=== PATIENT | male | born 1940 | race Hispanic/Latino ===

== ENCOUNTER 2017-12-14 17:01 | Inpatient (IN) | payer OTHER ==
[2017-12-14] MEDS ORDERED: SODIUM CHLORIDE 0.9% 10ML INJ IV PRN (17:49)
[2017-12-14 17:56] VITALS: BMI 28.6
[2017-12-14] MEDS ORDERED: MAGNESIUM CITRATE 300 ML BOT PO SCH (19:00)
[2017-12-14] MEDS ORDERED: GOLYTELY 4000 ML PO SCH (19:00)
[2017-12-14] MEDS ORDERED: INFLUENZA VACCINE (for 3y+) 0.5 ML DOSE IMVAC ONE (20:00)
[2017-12-14] MEDS: METOCLOPRAMIDE 10 MG/2mL INJ IV SCH (20:23)
[2017-12-14] MEDS: PANTOPRAZOLE 40 MG INJ IVP SCH (20:24)
[2017-12-14] MEDS: ALLOPURINOL 100 MG TAB PO SCH ×2 (20:24→20:45)
[2017-12-14] MEDS ORDERED: NA CHLORIDE 0.9% 250 ML ONE (21:34)
[2017-12-14 23:44] LABS: Urine Appearance CLEAR; Urine Bilirubin NEGATIVE (NEG); Urine Blood NEGATIVE (NEG); Urine Color YELLOW; Urine Glucose NEGATIVE (NEG); Urine Protein TRACE (NEG); Urine Specific Gravity 1.015 (1.005-1.030); Urine Urobilinogen 0.2 mg/dL (0.2-1.0)
[2017-12-14 23:45] LABS: Urine Microscopic Reflex NO UMIC
[2017-12-15] MEDS: METOCLOPRAMIDE 10 MG/2mL INJ IV SCH ×2 (00:33→06:46)
[2017-12-15 07:40] LABS: Hematocrit 23.4 % (39.6-49.0)
[2017-12-15] MEDS ORDERED: DILTIAZEM HCL 420 MG PO SCH (08:00)
[2017-12-15] MEDS ORDERED: D50W 25 GM/50 ML SYRINGE IV PRN (08:29)
[2017-12-15] MEDS ORDERED: GLUCAGON 1 MG/VIAL IM PRN (08:29)
[2017-12-15] MEDS: DILTIAZEM HCL 180 MG SR CAP PO SCH (09:00)
[2017-12-15] MEDS: DILTIAZEM HCL 120 MG SR CAP PO SCH (09:00)
--- NOTE | 2017-12-15 11:10 | RAD REPORT ---
EXAM DESCRIPTION: US - [facility] - 12/15/2017 10:47 am CLINICAL HISTORY: hx of dvt to right leg Leg swelling and edema. COMPARISON: [facility] dated 11/21/2017 FINDINGS: Right lower extremity venous system was interrogated with Doppler technique. Normal flow, compressibility and augmentation was noted. There is no DVT present.Previously noted greater saphenou s vein thrombosis has significantly recannulized. IMPRESSION: No evidence of right lower extremity deep venous thrombosis. Significant recanalization of the right greater saphenous vein
[2017-12-15] MEDS: PANTOPRAZOLE 40 MG INJ IVP SCH ×2 (11:32→20:53)
[2017-12-15] MEDS: HYDRALAZINE HCL 20 MG/ML VIAL IV PRN ×2 (11:32→23:58)
[2017-12-15] MEDS: INSULIN -REGULAR HUMAN 50 UNIT/0.5 ML ML SQ SCH ×2 (12:00→17:46)
[2017-12-15] MEDS ORDERED: NA CHLORIDE 0.9% 1,000 ML ONE (14:36)
[2017-12-15] MEDS ORDERED: PROPOFOL 200 MG/20 ML VIAL IV ONE ×2 (15:18→16:00)
[2017-12-15] MEDS ORDERED: EPINEPHRINE/PF 1 MG/ML AMP ONE (15:27)
--- NOTE | 2017-12-15 17:21 | ENDO RPT ---
[address], [address] COLONOSCOPY PROCEDURE REPORT EXAM DATE: 12/15/2017 PATIENT NAME: Zackery Belle MR #: [id number] BIRTHDATE: 1940 ATTENDING: Greg Irvin Dr STATUS: inpatient - 7 CAR TOP BOLTER: Ness Mcpherson RN and Lily Fair INDICATIONS: The patient is a 77 yr old Male here for a colonoscopy due to anemia and melenic bleeding PROCEDURE PERFORMED: Colonoscopy with biopsy MEDICATIONS: Per Anesthesia. ESTIMATED BLOOD LOSS: None CONSENT: The patient understands the risks and benefits of the procedure and understands that these risks include, but are not limited to: sedation, allergic reaction, infection, perforation and/or bleeding. Alternative means of evaluation and treatment include, among others: physical exam, x-rays, and/or surgical intervention. The patient elects to proceed with this endoscopic procedure. DESCRIPTION OF PROCEDURE: During intra-op preparation period all mechanical medical equipment was checked for proper function. Hand hygiene and appropriate measures for infection prevention was taken. Procedure, possible complications, alternatives including, but not limited to possibility of bleeding, perforation, tear, infection, sepsis, need for surgery, need for blood transfusion, were explained to the patient. After the risks, benefits and alternatives of the procedure were thoroughly explained, Informed consent was verified, confirmed and timeout was successfully executed by the treatment team. The patient was placed in the left lateral position. A digital rectal exam was performed and revealed no abnormalities of the rectum. After appropriate level of anesthesia, the scope was passed. The EG-2990i ([id number]) and EC-[id number] ([id number]) endoscope was introduced through the anus and advanced to the cecum, which was identified by both the appendix and ileocecal valve. The quality of the prep was fair. The instrument was then slowly withdrawn as the colon was fully examined. Scope withdrawal time was 7 minutes. COLON FINDINGS: Two sessile polyps measuring 3-4 mm in size were found in the sigmoid colon. A biopsy was performed using cold forceps. Mild diverticulosis was noted throughout the entire examined colon. No bleeding was noted from the diverticulosis. Moderate sized internal hemorrhoids were found. Retroflexed views revealed medium hemorrhoids. The scope was then completely withdrawn from the patient and the procedure terminated. ADVERSE EVENTS: There were no complications. IMPRESSIONS: 1. Two sessile polyps measuring 3-4 mm in size were found in the sigmoid colon; biopsy was performed using cold forceps (no polypectomy in setting of hospital admission with ongoing GI bleed) 2. Mild diverticulosis was noted throughout the entire examined colon 3. Moderate sized internal hemorrhoids 4. Intubation to cecum RECOMMENDATIONS: await biopsy results RECALL: for Colonoscopy with GI as outpatient. Greg Irvin Dr eSigned: Greg Irvin Dr 12/15/2017 4:02 PM cc: Janes Stover CPT CODES: ICD9 CODES: 211.3 Benign neoplasm of colon PATIENT NAME: Zackery Blele MR#: [id number]
--- NOTE | 2017-12-15 17:21 | ENDO RPT ---
[address], [address] EGD PROCEDURE REPORT EXAM DATE: 12/15/2017 PATIENT NAME: Zackery Belle MR#: [id number] BIRTHDATE: 1940 ATTENDING: Greg Irvin Dr STATUS: inpatient - [facility] COORDINATOR VOLUNTEER SERVICES: Lily Fair and Ness Mcpherson RN INDICATIONS: The patient is a 77 yr old Male here for an EGD due to anemia and melenic bleeding PROCEDURE PERFORMED: EGD with biopsy MEDICATIONS: Per Anesthesia. TOPICAL ANESTHETIC: none CONSENT: The patient understands the risks and benefits of the procedure and understands that these risks include, but are not limited to: sedation, allergic reaction, infection, perforation and/or bleeding. Alternative means of evaluation and treatment include, among others: physical exam, x-rays, and/or surgical intervention. The patient elects to proceed with this endoscopic procedure. DESCRIPTION OF PROCEDURE: During intra-op preparation period all mechanical medical equipment was checked for proper function. Hand hygiene and appropriate measures for infection prevention was taken. Procedure, possible complications, and alternatives including but not limited to the possibility of bleeding, perforation, tear, infection, sepsis, need for surgery, need for blood transfusion, and anesthesia related complications were explained to the patient. After the risks, benefits and alternatives of the procedure were thoroughly explained, Informed consent was verified, confirmed and timeout was successfully executed by the treatment team. The patient was placed in the left lateral position. The patient was anesthetized with topical anesthesia. Through the anesthetized oropharyngeal area, the scope was passed without any difficulty. The Pentax EG-2990i ([id number]) endoscope was introduced through the mouth and advanced to the second portion of the duodenum. Retroflexed views revealed a moderate sized hiatal hernia. The gastroscope was then slowly withdrawn and removed. LA Class B esophagitis was found in the lower esophagus. A moderate sized hiatal hernia was found. Slowing oozing of fresh heme from edematous area in the posterior aspect of the antrum with crevice containing either a small ulcer or AVM that could not be clearly visualized. Couple of 1 cm fresh blood clots in antrum with one stretch of coagulating blood from crevice to blood clot noted; blood clot removed. 4 cc Epinephrine (1:10,000) injected into edematous area with crevice with control of bleeding. Mild gastritis was found in the antrum. ADVERSE EVENTS: There were no complications. IMPRESSIONS: 1. LA Class B esophagitis was found in the lower esophagus 2. A moderate sized hiatal hernia 3. Slowing oozing of fresh heme from edematous area in the posterior aspect of the antrum with crevice containing either a small ulcer or AVM that could not be clearly visualized. Couple of 1 cm fresh blood clots in antrum with one stretch of coagulating blood from crevice to blood clot noted; blood clot removed. 4 cc Epinephrine (1:10,000) injected into edematous area with crevice with control of bleeding. 4. Mild gastritis in the antrum RECOMMENDATIONS: 1. acid suppression therapy 2. monitor labs and transfuse prn REPEAT EXAM: Greg Irvin Dr eSigned: Greg Irvin Dr 12/15/2017 3:42 PM cc: Janes Stover CPT CODES: ICD9 CODES: PATIENT NAME: Zackery Belle MR#: [id number]
--- NOTE | 2017-12-15 17:21 | ENDO RPT ---
[address], [address] EGD PROCEDURE REPORT EXAM DATE: 12/15/2017 PATIENT NAME: Zackery Belle MR#: [id number] BIRTHDATE: 1940 ATTENDING: Greg Irvin Dr STATUS: inpatient - [facility] SHELL MOLDER: Lily Fair and Ness Mcpherson RN INDICATIONS: The patient is a 77 yr old Male here for an EGD due to anemia, and melenic bleeding, and history of Dewitt's esophagus PROCEDURE PERFORMED: EGD with biopsy MEDICATIONS: Per Anesthesia. TOPICAL ANESTHETIC: none CONSENT: The patient understands the risks and benefits of the procedure and understands that these risks include, but are not limited to: sedation, allergic reaction, infection, perforation and/or bleeding. Alternative means of evaluation and treatment include, among others: physical exam, x-rays, and/or surgical intervention. The patient elects to proceed with this endoscopic procedure. DESCRIPTION OF PROCEDURE: During intra-op preparation period all mechanical medical equipment was checked for proper function. Hand hygiene and appropriate measures for infection prevention was taken. Procedure, possible complications, and alternatives including but not limited to the possibility of bleeding, perforation, tear, infection, sepsis, need for surgery, need for blood transfusion, and anesthesia related complications were explained to the patient. After the risks, benefits and alternatives of the procedure were thoroughly explained, Informed consent was verified, confirmed and timeout was successfully executed by the treatment team. The patient was placed in the left lateral position. The patient was anesthetized with topical anesthesia. Through the anesthetized oropharyngeal area, the scope was passed without any difficulty. The Pentax EG-2990i ([id number]) endoscope was introduced through the mouth and advanced to the second portion of the duodenum. Retroflexed views revealed a moderate sized hiatal hernia. The gastroscope was then slowly withdrawn and removed. LA Class B esophagitis was found in the lower esophagus. Dewitt's esophagus in the lower esophagus. A moderate sized hiatal hernia was found. Slowing oozing of fresh heme from edematous area in the posterior aspect of the antrum with crevice containing either a small ulcer or AVM that could not be clearly visualized. Couple of 1 cm fresh blood clots in antrum with one stretch of coagulating blood from crevice to blood clot noted; blood clot removed. 4 cc Epinephrine (1:10,000) injected into edematous area with crevice with control of bleeding. Mild gastritis was found in the antrum. ADVERSE EVENTS: There were no complications. IMPRESSIONS: 1. LA Class B esophagitis was found in the lower esophagus 2. Dewitt's esophagus in the lower esophagus (not biopsies in setting of acute GI bleed) 3. A moderate sized hiatal hernia 4. Slowing oozing of fresh heme from edematous area in the posterior aspect of the antrum with crevice containing either a small ulcer or AVM that could not be clearly visualized. Couple of 1 cm fresh blood clots in antrum with one stretch of coagulating blood from crevice to blood clot noted; blood clot removed. 4 cc Epinephrine (1:10,000) injected into edematous area with crevice with control of bleeding. 5. Mild gastritis in the antrum RECOMMENDATIONS: 1. acid suppression therapy 2. monitor labs and transfuse prn REPEAT EXAM: Greg Irvin Dr eSigned: Greg Irvin Dr 12/15/2017 4:05 PM Revised: 12/15/2017 4:05 PM cc: Janes Stover CPT CODES: ICD9 CODES: PATIENT NAME: Zackery Belle MR#: [id number]
--- NOTE | 2017-12-15 19:21 | HP ---
Date of Admission: 12/14/2017 Chief Complaint: Increased dizziness. History Of Present Illness: A 77-year-old male who recently had DVT, was on Xarelto, was brought to the office because of increased dizziness. The patient was found to have a pale look. In addition, patient also admitted having dark stools. At this point with a possibility of GI bleeding, the patie nt had outpatient workup. His hemoglobin was 6 g. The patient is admitted for blood transfusion as well as workup to see whether he has active bleeding lesion in the stomach very likely. Past Medical History: The patient is known to have history of Dewitt esophagus. Other medical prob lems include history of BPH, type 2 diabetes, hypertension, gout. Past Surgical History: Positive for appendectomy, right knee surgery. Family History: Noncontributory. Personal History: No known allergies. Home Medicines: Please refer to the chart. Review of Systems: No fever, chills, rigors. Physical Examination: General: Revealed a 77-year-old male, pale looking. Blood pressure 140/70. HEENT: Otherwise negative. Neck: Supple. JVD negative. Chest: Clear. Heart: Regular. Abdomen: Nontender. Extremities: No edema. Laboratory Data: Hemoglobin 6 g. Chem profile essentially negative. Assessment: 1.Gastrointestinal bleeding. 2.Xarelto treatment for deep vein thrombosis. 3.Hypertension. 4.Type 2 diabetes. 5.History of gout. Plan: The patient already received 2 units of packed RBC. The patient is due to have endoscopy. He also has consultation with Hematology Service to see in view of his bleeding whether IVC filter is i ndicated or other options may also be coming from the hematology consult. MERVAT/ALEXANDRO Voice ID: [id number]
[2017-12-15] MEDS: TAMSULOSIN 0.4 MG SR CAP PO SCH (20:53)
[2017-12-15] MEDS: ALLOPURINOL 100 MG TAB PO SCH (20:53)
[2017-12-16] MEDS: INSULIN -REGULAR HUMAN 50 UNIT/0.5 ML ML SQ SCH ×4 (06:00→20:19)
[2017-12-16] MEDS: DILTIAZEM HCL 120 MG SR CAP PO SCH (09:07)
[2017-12-16] MEDS: DILTIAZEM HCL 180 MG SR CAP PO SCH (09:07)
[2017-12-16] MEDS: PANTOPRAZOLE 40 MG INJ IVP SCH ×2 (09:07→20:10)
[2017-12-16 09:21] LABS: Absolute Lymphocytes (CBC) 1.8 K/uL (0.7-4.9); Absolute Monocytes 0.5 K/uL (0.1-1.3); Absolute Neutrophil 4.6 K/uL (1.8-8.0); Basophils % 0.2 % (0-1.3); Eosinophils % 1.8 % (0-4.4); Hematocrit 24.6 % (39.6-49.0); Lymphocytes % 25.9 % (15.3-44.8); MCH 28.1 pg (27.0-35.0); MCV 84.1 fL (80-100); MPV 6.6 fL (7.6-11.3); Monocytes % 6.8 % (3.3-12.3); RBC Red Blood Cell Count 2.93 M/uL (4.33-5.43)
[2017-12-16 09:39] LABS: Magnesium 2.3 mg/dL (1.8-2.4); Phosphorus 3.1 mg/dL (2.5-4.9); Potassium 3.9 mmol/L (3.5-5.1)
--- NOTE | 2017-12-16 14:43 | PN ---
The patient is doing better. His hemoglobin is 8.2 today. He still has some dizziness. The patient had evidence of active bleeding in the stomach that was documented in the endoscopy. The patient wi ll be continued to be observed for 24 hours. If there is no loss of blood, he will be discharged. Cassie carlsonwhile, I spoke with Dr. Espinal, nurse informaticist, regarding his DVT. I also had discussion with t he patient. The patient does not want to take the risk of IVC filter. Based on this, he will not be going through any procedures. The patient will be monitored in the office. The patient also will b e given iron to replenish his iron stores. The patient will be given instructions as to what he woul d be looking for in case he has any symptoms of recurrence of DVT or its complications. MERVAT/ALEXANDRO Voice ID: [id number] Report ID: [id number]
[2017-12-16] MEDS: ALLOPURINOL 100 MG TAB PO SCH (20:10)
[2017-12-16] MEDS: TAMSULOSIN 0.4 MG SR CAP PO SCH (20:10)
--- NOTE | 2017-12-16 20:12 | P.CNS ---
Date of Consult: 12/15/17 (Hematology) Reason for consult: Pt with VTE on xarelto, now with GI bleeding. History of Present Illness: A 77-year-old male presented to the ER with symptoms of dizziness and dark stools. He was noted to have a hemoglobin of 6.1 grams. Patient has been on Xarelto since early November for management of extensive great saphaneous vein thrombosis. Hemotology consulted for recommendations for alternates for anticoagulation given extensive GI bleading in the setting of VTE on xarelto and ? of need for +/- IVC filter. When seen today, pt seems comfortable, eating lunch and symptomatically better. He had EGD and colonoscopy yesterday and was found to have esophagitis and ulcers/ orAVM in the stomach. Xarelto has been held since admission. Repeat Doppler of the left lower extremity done yesterday did not show any DVT and the GSV seems recanulized. Patient gives a history of prolonged bus travel prior to this VTE (four hours of travel each side in 3 days back and forth to [place]) . No family history of blood clots, sudden cardiac deaths, autoimmune diseases etc. No personal h/o malignancy, hormonal use, smoking, prior DVT. . Past Medical History: Dewitt esophagus, BPH, type 2 diabetes, hypertension, gout. Past Surgical History: appendectomy, right knee surgery. Family History: Noncontributory. Personal History: H/o smoking 1ppd quit many years ago. Occasional social alcohol. Denies drug abuse. . Physical Examination: General Appearance: Well developed, well dressed, alert, cooperative, appears to be in no acute distress. Skin, Hair & Nails: normal texture, normal turgor and color. No open wounds. Head: normocephalic, atraumatic. Eyes: anicteric, no injection of conjunctivae. Ears: hearing grossly intact. Nose: nares patent. Throat: no erythema, no exudate. Neck: neck supple, without lymphadenopathy. Respiratory: good respiratory effort, clear to auscultation, no wheezing. Cardiovascular: regular rate and rhythm, no murmurs, no cyanosis. Abdomen: bowel sounds present and equal in all four quadrants, abdomen is soft, nondistended, no masses, no hepatosplenomegaly. Peripheral Vascular: no pedal edema, no leg swelling orcalf tenderness Musculoskeletal: normal gait, normal posture, 5/5 strength through upper extremities. Neurological: AAOx3, CN II-XII intact, Strength symmetric and intact throughout. Labs reviewed. Hb 8.2 gm / MCV 84 Plt 411 Problems/ recommendations 1.Great saphenous vein thrombosis: He had a provoked SVT noted Sept 4 after which he was started on xarelto. This is a superficial vein thrombosis which was extensive with close proximity to the deep vein system. Usually, for superficial vein thrombosis we recommend prophylactic anticoagulation with low dose Xarelto for 45 days. At this time, he can be on any anticoagulation due to UGI bleed. A temporary IVC filter can be considered to decrease risk of embolism during the acute period. Repeat Doppler legs yesterday is reassuring given no evidence of progression of DVT ( no DVT/ recannulization of the GSV). We discussed at length on the pros and cons of IVC filter. IVC filter itself can be thrombogenic as well. Patient opting for close observation of symptoms, stay active and avoid immobility than have the IVC filter.. In the event, he develops swelling, pain in the legs, chest pains, sob, change in baseline status, he will seek immediate medical attention. Priority now is to address the GI bleed and stabilize the Hb. Follow up with GI. Once risk for GI bleeding has resolved, consider low dose ASA. 2, Anemia: Hb improved with PRBC transfusion. Iron supplementation likely will improve stores and Hb and also normalize the thrombocytosis. Patient to follow up with his pcp and re-consult if needed. D/w Dr meza.
[2017-12-17 06:02] LABS: Absolute Lymphocytes (CBC) 1.7 K/uL (0.7-4.9); Absolute Monocytes 0.7 K/uL (0.1-1.3); Absolute Neutrophil 3.9 K/uL (1.8-8.0); Basophils % 0.3 % (0-1.3); Eosinophils % 3.2 % (0-4.4); Hematocrit 22.1 % (39.6-49.0); Lymphocytes % 26.5 % (15.3-44.8); MCH 28.4 pg (27.0-35.0); MCV 83.4 fL (80-100); MPV 6.8 fL (7.6-11.3); Monocytes % 10.1 % (3.3-12.3); RBC Red Blood Cell Count 2.65 M/uL (4.33-5.43)
[2017-12-17 06:39] LABS: Protime INR 1.02
[2017-12-17] MEDS: INSULIN -REGULAR HUMAN 50 UNIT/0.5 ML ML SQ SCH ×4 (07:30→21:00)
[2017-12-17] MEDS: DILTIAZEM HCL 120 MG SR CAP PO SCH (09:21)
[2017-12-17] MEDS: PANTOPRAZOLE 40 MG INJ IVP SCH ×2 (09:22→20:25)
[2017-12-17] MEDS: DILTIAZEM HCL 180 MG SR CAP PO SCH (09:22)
[2017-12-17] MEDS ORDERED: NA CHLORIDE 0.9% 250 ML ONE ×2 (10:31→15:58)
[2017-12-17] MEDS: TAMSULOSIN 0.4 MG SR CAP PO SCH (20:25)
[2017-12-17] MEDS: ALLOPURINOL 100 MG TAB PO SCH (20:25)
[2017-12-17 22:02] VITALS: O2SAT 98
--- NOTE | 2017-12-18 | PN ---
The patient's hemoglobin dropped to 7.5. He received 2 units of packed RBC. The patient in view of this will be under observation and he will be reexamined tomorrow and assessed. NICK Voice ID: [id number] Report ID: [id number]
[2017-12-18] MEDS: INSULIN -REGULAR HUMAN 50 UNIT/0.5 ML ML SQ SCH ×4 (07:30→16:30)
[2017-12-18] MEDS: PANTOPRAZOLE 40 MG INJ IVP SCH (09:34)
[2017-12-18] MEDS: DILTIAZEM HCL 180 MG SR CAP PO SCH (09:34)
[2017-12-18] MEDS: DILTIAZEM HCL 120 MG SR CAP PO SCH (09:34)
[2017-12-18 09:57] LABS: Absolute Lymphocytes (CBC) 1.7 K/uL (0.7-4.9); Absolute Monocytes 0.5 K/uL (0.1-1.3); Absolute Neutrophil 4.2 K/uL (1.8-8.0); Basophils % 0.6 % (0-1.3); Eosinophils % 3.1 % (0-4.4); Lymphocytes % 26.2 % (15.3-44.8); MCH 28.3 pg (27.0-35.0); MPV 7.3 fL (7.6-11.3); Monocytes % 6.9 % (3.3-12.3); RBC Red Blood Cell Count 3.53 M/uL (4.33-5.43)
[2017-12-18 16:58] VITALS: BP 131/72; TEMP 97.9
--- NOTE | 2017-12-19 18:42 | P.PN ---
Subjective Date of Service: 12/16/17 Chief Complaint: Anemia, melena Subjective: Improving (No melena / GI bleeding noted. Feels better. Tolerating diet.) Review of Systems 10-point ROS is otherwise unremarkable General: Weakness (Improved. ) Physical Examination - Vital Signs Temperature: 97.9 F Blood Pressure: 131/72 Pulse: 63 Respirations: 18 Pulse Ox (%): 98 - Physical Exam General: Alert, In no apparent distress, Oriented x3, Cooperative HEENT: Atraumatic, Normocephalic, PERRLA, EOMI Neck: Supple Respiratory: Normal air movement Cardiovascular: Normal pulses Gastrointestinal: Soft and benign, No tenderness, No rebound, No guarding Neurological: Normal speech, Normal strength at 5/5 x4 extr Assessment And Plan - Current Problems (Diagnosis) (1) Melena Status: Acute Comment: Improved. (2) Anemia Status: Acute Comment: Stable. (3) GI bleeding Onset Date: 12/15/17 Status: Acute - Plan REC: 1) monitor H&H 2) transfuse prn 3) consider repeat EGD 4) PPI therapy
--- NOTE | 2017-12-19 18:45 | P.PN ---
Subjective Date of Service: 12/17/17 Chief Complaint: Anemia, melena Subjective: New changes (Hgb down to 7.5 from ~ 8.3. He feels fine without complaint, denies seeing any blood. Ate breakfast without problem (possibly dilutional).) Review of Systems 10-point ROS is otherwise unremarkable General: Weakness (Resolved. ) Physical Examination - Vital Signs Temperature: 97.9 F Blood Pressure: 131/72 Pulse: 63 Respirations: 18 Pulse Ox (%): 98 - Physical Exam General: Alert, In no apparent distress, Oriented x3, Cooperative HEENT: Atraumatic, Normocephalic, PERRLA, EOMI Neck: Supple Cardiovascular: Normal pulses Gastrointestinal: No tenderness, No rebound, No guarding Neurological: Normal speech, Normal strength at 5/5 x4 extr Assessment And Plan - Current Problems (Diagnosis) (1) Melena Status: Acute Comment: Improved. (2) Anemia Status: Acute Comment: Stable. (3) GI bleeding Onset Date: 12/15/17 Status: Acute - Plan REC: 1) monitor H&H 2) transfuse prn 3) consider repeat EGD 4) PPI therapy 5) GI clinic f/u this week
--- NOTE | 2017-12-22 04:28 | DS ---
Date of Discharge: 12/18/2017 Final Diagnoses: 1.Acute upper gastrointestinal bleeding. 2.Xarelto causing above. 3.Hypertension. 4.Type 2 diabetes. 5.History of gout. Hospital Course: This patient was admitted as he was having dizziness and he was found to have conju nctival pallor in the office with a diagnosis of possible GI bleeding. The patient had outpatient CB C which showed a hemoglobin of 6 g. At this point, the patient was admitted. After admission to the hospital, the patient received 2 units of packed RBC. The patient subsequently underwent upper and lower endoscopies. Lower endoscopy did not show any active bleeding; however, upper endoscopy showed an area of active bleeding, possible vascular malformation or ulcer. The patient postoperatively di d okay for 24 hours, however, there was further drop of hemoglobin. The patient received 2 more unit s. The patient was monitored for another 24 hours. The hemoglobin started going up and he did not h ave any dark stools anymore. At this point, the patient was discharged. He was given option of IVC filter, however, he did not want to have any procedures done. At this point, the patient was advised to ambulate during his travels and other information regarding DVT prevention was given to the patie nt's brother in the room. Laboratory: Please refer to the chart. MERVAT/ALEXANDRO Voice ID: [id number] Report ID: [id number]
--- NOTE | 2018-01-15 08:53 | CON ---
Date of Consultation: 12/07/2017 Reason For Consultation: Anemia with hemoglobin of 6.2 and melena, on Xarelto. History Of Present Illness: The patient is a 77-year-old white male with history of DVT on Xarelto, brought in because of increased dizziness with some paleness. The patient had hemoglobin of 6.2. He reports melena 3 to 4 times while on Xarelto. Last EGD was in June 2017, which revealed Dewitt's esophagus. Last colonoscopy approximately 4 years ago revealed colon polyps. Past Medical History: Significant for Dewitt's esophagus, benign prostatic hypertrophy. Type 2 lisa betes, hypertension, and gout. Past Surgical History: Appendectomy and right knee surgery. Social History: , 2 kids. No tobacco. Positive for alcohol. Family History: Father of lung cancer. Mother of stroke. Review of Systems: The patient has melena, anemia, weakness is mild. Denies any depression, anxiety, muscle aches, join t aches, backaches, hematochezia, masses, coffee-grounds emesis, hematuria, dysuria, polydipsia, hemo ptysis. Allergies: NKDA. Physical Examination: Vital Signs: The patient has a temperature of 98 degrees Fahrenheit, pulse 100, respirations 18, blo od pressure 160/76, O2 saturation 95 to 99%. General: He is a well-nourished, well-developed male, in no acute distress. HEENT: Normocephalic, atraumatic. Anicteric. Pupils equal, round, and reactive to light. Extraocu lar movements intact. Oropharynx is clear. Neck: Supple. No masses. Respirations: Clear to auscultation bilaterally. Cardiac: Regular rate and rhythm. No gallops or rubs. Abdomen: Positive bowel sounds. Soft, nontender, nondistended. No hepatosplenomegaly. Extremities: No clubbing, cyanosis, or edema. 2+ pulses. Neuro: Alert and oriented x3. Grossly nonfocal. 5/5 motor strength intact to light touch. Laboratory Data: The patient has a white count yesterday of 6.5, hemoglobin of 6.1, hematocrit of 18 .9, MCV of 87, platelet count 444, polys 65%, lymphocytes 26%, monocytes 7%, eosinophils 1%. PT of 1 2.0, INR of 1.1. We will have that wall reached home yesterday. The patient has sodium 140, potassi um 4.2, chloride 108, bicarb 24, BUN of 20, creatinine of 1.4, glucose 131, calcium 8.4, bilirubin of 0.2, AST of 10, ALT of 17, alkaline phosphatase 60, total protein 7.3, albumin 3.4. UA shows some t race protein, otherwise negative. Impression: 1.Anemia. Hemoglobin 6.2, after 2 units up to 11. Last EGD in June 2017 revealed Dewitt's esopha karey. Last colonoscopy 4 years ago revealed colon polyps. 2.Melena 3 to 4 times, on Xarelto. 3.History of Dewitt's esophagus. 4.History of deep vein thrombosis on the right leg, on Xarelto diagnosed 3 weeks ago. Recommendation: 1.EGD colonoscopy. 2.Serial H and H, and transfuse p.r.n. 3.IV fluids. 4.PPI therapy. 5.Agree with holding Xarelto. ERIKA/ALEXANDRO Voice ID: [id number] Report ID: [id number]
== END 2017-12-18 18:45 | disposition home or self-care (01) | DRG 299 ==
LOC: 4TH 17:20 → OBSVTOIN 12-16 12:52
PROVIDERS: ADMIT Internal Medicine; ATTEND Internal Medicine
PROC: 0DBN8ZX Excision of Sigmoid Colon, Via Natural or Artificial Opening Endoscopic, Diagnostic (ICD-10-PCS; 2017-12-15)
PROC: 0W3P8ZZ Control Bleeding in Gastrointestinal Tract, Via Natural or Artificial Opening Endoscopic (ICD-10-PCS; 2017-12-15 14:45)
PROC: 30233N1 Transfusion of Nonautologous Red Blood Cells into Peripheral Vein, Percutaneous Approach (ICD-10-PCS; principal; 2017-12-16)
DX: Q27.33 Arteriovenous malformation of digestive system vessel (principal); K25.4 Chronic or unspecified gastric ulcer with hemorrhage; T45.515A Adverse effect of anticoagulants, initial encounter; Y92.009 Unspecified place in unspecified non-institutional (private) residence as the place of occurrence of the external cause; I10 Essential (primary) hypertension; E11.9 Type 2 diabetes mellitus without complications; M10.9 Gout, unspecified; D64.9 Anemia, unspecified; D12.5 Benign neoplasm of sigmoid colon; K57.90 Diverticulosis of intestine, part unspecified, without perforation or abscess without bleeding; K64.8 Other hemorrhoids; N40.0 Benign prostatic hyperplasia without lower urinary tract symptoms; K20.8 Other esophagitis; K22.70 Barrett's esophagus without dysplasia; K44.9 Diaphragmatic hernia without obstruction or gangrene; K29.70 Gastritis, unspecified, without bleeding; Z86.718 Personal history of other venous thrombosis and embolism; Z79.01 Long term (current) use of anticoagulants; Z23 Encounter for immunization
CPT/HCPCS: 36415; 80048; 80053; 81003; 82962; 83735; 84100; 85014; 85018; 85025; 85610; 85730; 86850; 86900; 86901; 87086; 87088; 88305; 93971; C9113; G0008; J0171; J0360; J2765; J7030; P9016; Q2035

== ENCOUNTER 2018-08-18 15:28 | Emergency (ER) | payer OTHER ==
--- NOTE | 2018-08-18 16:56 | RAD REPORT ---
EXAM DESCRIPTION: CT - Head Brain Wo Cont - 08/18/2018 4:40 pm CLINICAL HISTORY: DIZZINESS Headache, drowsiness COMPARISON: No comparisons TECHNIQUE: All CT scans are performed using dose optimization technique as appropriate and may inclu de automated exposure control or mA/KV adjustment according to patient size. FINDINGS: No intracranial hemorrhage, hydrocephalus or extra-axial fluid collection.Mild generalized brain atrophy is present with mild periventricular and deep white matter chronic microvascular ische jojo changes.No areas of brain edema or evidence of midline shift. The paranasal sinuses and mastoids are essentially clear. The calvarium is intact. IMPRESSION: No acute intracranial abnormality.
[2018-08-18 18:01] LABS: Absolute Lymphocytes (CBC) 1.8 K/uL (0.7-4.9); Absolute Monocytes 0.6 K/uL (0.1-1.3); Basophils % 0.3 % (0-1.3); Eosinophils % 0.6 % (0-4.4); Hematocrit 42.6 % (39.6-49.0); Lymphocytes % 14.6 % (15.3-44.8); MPV 7.4 fL (7.6-11.3); Monocytes % 5.1 % (3.3-12.3); RBC Red Blood Cell Count 4.24 M/uL (4.33-5.43)
[2018-08-18 18:22] LABS: ALT/SGPT 16 U/L (12-78); AST/SGOT 13 U/L (15-37); Albumin 3.7 g/dL (3.4-5.0); Alkaline Phosphatase 69 U/L (45-117); BUN Blood Urea Nitrogen 18 mg/dL (7-18); Bicarbonate 26 mmol/L (21-32); Bilirubin Direct 0.1 mg/dL (0-0.2); Bilirubin Total 0.4 mg/dL (0.2-1.0); Glucose Level 145 mg/dL (74-106); Magnesium 1.9 mg/dL (1.8-2.4); NT PRO-BNP 177 pg/mL (<450); Potassium 4.4 mmol/L (3.5-5.1); Protein, Total 8.3 g/dL (6.4-8.2); Sodium Level 140 mmol/L (136-145); Troponin (Emerg Dept Use Only) < 0.02 ng/mL (0.0-0.045)
--- NOTE | 2018-08-18 18:37 | RAD REPORT ---
EXAM DESCRIPTION: RAD - Chest Single View - 08/18/2018 6:24 pm CLINICAL HISTORY: Dizziness Chest pain. COMPARISON: CHEST PA AND LAT 2 VIEW dated 09/13/2012; CHEST PA AND LAT 2 VIEW dated 05/02/2012; CHEST PA AND LAT 2 VIEW dated 09/20/2009; CHEST PA AND LAT 2 VIEW dated 01/21/2008 FINDINGS: Portable technique limits examination quality. The lungs are grossly clear. The heart is mildly enlarged in size. No displaced fractures.
[2018-08-18] MEDS ORDERED: DIAZEPAM 5 MG TABLET ONE (19:20)
[2018-08-18] MEDS ORDERED: NA CHLORIDE 0.9% 1,000 ML ONE (19:21)
[2018-08-18 19:40] LABS: Protime INR 0.94
[2018-08-18] MEDS ORDERED: MECLIZINE HCL 12.5 MG TAB ONE (20:00)
--- NOTE | 2018-08-18 20:38 | ER ---
Nurse's Notes [facility] Name: Zackery Belle Jr Age: 78 yrs Sex: Male : 1940 Arrival Date: 08/18/2018 Time: 15:31 Bed 28 Private MD: Diagnosis: Dizziness and giddiness Presentation: 08/18 15:32 Presenting complaint: Patient states: dizziness since waking up today at 0800, denies sv dizziness last night and went to bed around 2200. c/o nausea. Denies ROLON, vomiting. Transition of care: patient was not received from another setting of care. Onset of symptoms was August 18, 2018 at 08:00. Initial Sepsis Screen: Does the patient meet any 2 criteria? No. Patient's initial sepsis screen is negative. Does the patient have a suspected source of infection? No. Patient's initial sepsis screen is negative. Care prior to arrival: None. 15:32 Method Of Arrival: Wheelchair sv 15:32 Acuity: DAVID 3 sv 15:35 Note Reports this morning he woke up with right hip pain and the last couple of days he sv has been having left sided abd pain. 18:23 Risk Assessment: Do you want to hurt yourself or someone else? Patient reports no rv desire to harm self or others. Triage Assessment: 15:32 General: Appears in no apparent distress. uncomfortable, well developed, Behavior is sv calm, cooperative, appropriate for age. Pain: Denies pain. Neuro: Level of Consciousness is awake, alert, obeys commands, Oriented to person, place, time, situation, Moves all extremities. Full function Speech is normal, Facial symmetry appears normal, Reports dizziness. Neuro: Denies numbness headache. Respiratory: Respiratory effort is even, unlabored, Respiratory pattern is regular, symmetrical. Derm: Skin is pink, warm \T\ dry. 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 - Social history:: Smoking status: Patient/guardian denies using tobacco. - Ebola Screening: : No symptoms or risks identified at this time. Screenin:22 Abuse screen: Denies threats or abuse. Denies injuries from another. Nutritional rv screening: No deficits noted. Tuberculosis screening: No symptoms or risk factors identified. Fall Risk None identified. Assessment: 18:10 General: Appears in no apparent distress. comfortable, Behavior is calm, cooperative. rv Pain: Denies pain. Neuro: Level of Consciousness is awake, alert, obeys commands, Oriented to person, place, time, situation. Neuro: Reports dizziness. Cardiovascular: Patient's skin is warm and dry. Respiratory: Airway is patent. GI: No signs and/or symptoms were reported involving the gastrointestinal system. : No signs and/or symptoms were reported regarding the genitourinary system. EENT: No signs and/or symptoms were reported regarding the EENT system. Derm: Skin is intact. Musculoskeletal: No signs and/or symptoms reported regarding the musculoskeletal system. 19:52 Reassessment: Patient appears in no apparent distress at this time. Patient and/or rv family updated on plan of care and expected duration. Pain level reassessed. Patient is alert, oriented x 3, equal unlabored respirations, skin warm/dry/pink. updated GEORGINA Galvan of patient's status. Patient states feeling better. Patient states symptoms have improved. Vital Signs: 15:34 BP 176 / 85; Pulse 71; Resp 16; Temp 97.7; Pulse Ox 99% ; Weight 86.18 kg; Height 5 ft. sv 9 in. (175.26 cm); Pain 0/10; 18:01 BP 157 / 66 Supine; Pulse 57; lt1 18:01 BP 153 / 70 Sitting; Pulse 66; lt1 18:01 BP 146 / 68 Standing; Pulse 69; lt1 18:30 BP 131 / 67; Pulse 61; Resp 16; Pulse Ox 96% ; rv 19:00 BP 139 / 64; Pulse 56; Resp 15; Pulse Ox 97% ; rv 19:30 BP 147 / 61; Pulse 54; Resp 16; Pulse Ox 94% ; rv 19:49 Temp 97.8; rv 15:34 Body Mass Index 28.06 (86.18 kg, 175.26 cm) sv ED Course: 15:31 Patient arrived in ED. as 15:34 Triage completed. sv 15:35 Arm band placed on. sv 16:39 CT completed. Patient tolerated procedure well. Patient moved back from CT. mw3 16:43 CT Head Brain wo Cont In Process Unspecified. EDMS 17:09 Cole Flowers NP is PHCP. pm1 17:09 Filiberto Mendez MD is Attending Physician. pm1 17:33 Davon Lopes, TOMMY is Primary Nurse. rv 17:38 Missed attempt(s): 20 gauge in left antecubital area. lt1 17:38 Initial lab(s) drawn, by me, sent to lab. Inserted saline lock: 20 gauge in right lt1 antecubital area, using aseptic technique. 18:22 Patient has correct armband on for positive identification. Bed in low position. Call rv light in reach. Side rails up X 1. court recording monitor on. Pulse ox on. NIBP on. 18:27 XRAY Chest (1 view) In Process Unspecified. EDMS 20:49 No provider procedures requiring assistance completed. IV discontinued, intact, rv bleeding controlled, No redness/swelling at site. Pressure dressing applied. Administered Medications: 19:13 Drug: Valium 5 mg Route: PO; rv 19:51 Follow up: Response: Marked relief of symptoms rv 19:13 Drug: NS 0.9% 1000 ml Route: IV; Rate: 1000 ml; Site: right antecubital; rv 19:51 Follow up: IV Status: Completed infusion; IV Intake: 1000ml rv 19:48 Drug: Meclizine 50 mg Route: PO; rv 22:30 Follow up: Response: Marked relief of symptoms rv Intake: 19:51 IV: 1000ml; Total: 1000ml. rv Outcome: 20:37 Discharge ordered by MD. pm1 20:49 Discharged to home ambulatory. rv 20:49 Condition: improved 20:49 Discharge instructions given to patient, family, Instructed on discharge instructions, follow up and referral plans. medication usage, Demonstrated understanding of instructions, follow-up care, medications, Prescriptions given X 1. 20:50 Patient left the ED. rv Signatures: Dispatcher [employer] EDMS Kassidy Diaz RN RN sv Martinez, Amelia as Cole Flowers NP ELECTROLYSIST pm1 Arleth Phelps mw3 Davon Lopes RN RN rv Tran, Leah lt1 Corrections: (The following items were deleted from the chart) 15:36 15:34 Pulse 71bpm; Resp 16bpm; Pulse Ox 99%; Temp 97.7F; 86.18 kg; Height 5 ft. 9 in.; sv BMI: 28.0; Pain 0/10; sv
--- NOTE | 2018-08-18 20:38 | EDPHYS ---
Physician Documentation [facility] Name: Zackery Belle Jr Age: 78 yrs Sex: Male : 1940 Arrival Date: 08/18/2018 Time: 15:31 Bed 28 Private MD: ED Physician Filiberto Mendez HPI: 08/18 18:36 This 78 yrs old Male presents to ER via Wheelchair with complaints of pm1 Dizziness. 18:36 The patient presents with sense of spinning, vertigo. Onset: The symptoms/episode pm1 began/occurred this morning. Context: occurred at home, just prior to the episode the patient experienced no apparent symptoms. Modifying factors: The symptoms are alleviated by nothing, the symptoms are aggravated by changing position. Associated signs and symptoms: Pertinent negatives: abdominal pain, blurred vision, chest pain, headache, near-syncope, numbness, shortness of breath, tingling, vomiting. Severity of symptoms: in the emergency department the symptoms are unchanged. The patient has experienced similar episodes in the past, and the symptoms today are exactly the same, history of Meniere's disease. The patient has been recently seen by a physician: Dr. Calle yesterday and told everything is good. Dizziness reproduced with changing position from lying to sitting and sitting to standing. 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 - Social history:: Smoking status: Patient/guardian denies using tobacco. - Ebola Screening: : No symptoms or risks identified at this time. ROS: 18:36 Constitutional: Negative for fever, chills, and weight loss, Eyes: Negative for injury, pm1 pain, redness, and discharge, ENT: Negative for injury, pain, and discharge, Neck: Negative for injury, pain, and swelling, Cardiovascular: Negative for chest pain, palpitations, and edema, Respiratory: Negative for shortness of breath, cough, wheezing, and pleuritic chest pain, Abdomen/GI: Negative for abdominal pain, nausea, vomiting, diarrhea, and constipation, Back: Negative for injury and pain, : Negative for injury, bleeding, discharge, and swelling, MS/Extremity: Negative for injury and deformity, Skin: Negative for injury, rash, and discoloration. 18:36 Neuro: Positive for dizziness, Negative for numbness, tingling. Exam: 18:36 Constitutional: This is a well developed, well nourished patient who is awake, alert, pm1 and in no acute distress. Head/Face: Normocephalic, atraumatic. ENT: Nares patent. No nasal discharge, no septal abnormalities noted. Tympanic membranes are normal and external auditory canals are clear. Oropharynx with no redness, swelling, or masses, exudates, or evidence of obstruction, uvula midline. Mucous membranes moist. 18:36 Neck: Trachea midline, no thyromegaly or masses palpated, and no cervical lymphadenopathy. Supple, full range of motion without nuchal rigidity, or vertebral point tenderness. No Meningismus. Chest/axilla: Normal chest wall appearance and motion. Nontender with no deformity. No lesions are appreciated. Cardiovascular: Regular rate and rhythm with a normal S1 and S2. No gallops, murmurs, or rubs. Normal PMI, no JVD. No pulse deficits. Respiratory: Lungs have equal breath sounds bilaterally, clear to auscultation and percussion. No rales, rhonchi or wheezes noted. No increased work of breathing, no retractions or nasal flaring. Abdomen/GI: Soft, non-tender, with normal bowel sounds. No distension or tympany. No guarding or rebound. No evidence of tenderness throughout. Back: No spinal tenderness. No costovertebral tenderness. Full range of motion. Skin: Warm, dry with normal turgor. Normal color with no rashes, no lesions, and no evidence of cellulitis. MS/ Extremity: Pulses equal, no cyanosis. Neurovascular intact. Full, normal range of motion. 18:36 Eyes: Periorbital structures: appear normal, Pupils: no acute changes, Extraocular movements: intact throughout, Conjunctiva: normal, Nystagmus: vestibular nystagmus. 18:36 Neuro: Orientation: is normal, Motor: is normal, moves all fours. Vital Signs: 15:34 BP 176 / 85; Pulse 71; Resp 16; Temp 97.7; Pulse Ox 99% ; Weight 86.18 kg; Height 5 ft. sv 9 in. (175.26 cm); Pain 0/10; 18:01 BP 157 / 66 Supine; Pulse 57; lt1 18:01 BP 153 / 70 Sitting; Pulse 66; lt1 18:01 BP 146 / 68 Standing; Pulse 69; lt1 18:30 BP 131 / 67; Pulse 61; Resp 16; Pulse Ox 96% ; rv 19:00 BP 139 / 64; Pulse 56; Resp 15; Pulse Ox 97% ; rv 19:30 BP 147 / 61; Pulse 54; Resp 16; Pulse Ox 94% ; rv 19:49 Temp 97.8; rv 15:34 Body Mass Index 28.06 (86.18 kg, 175.26 cm) sv MDM: 17:17 Patient medically screened. pm1 20:37 Data reviewed: vital signs. Data interpreted: Pulse oximetry: on room air is 99 %. pm1 Interpretation: normal. Counseling: I had a detailed discussion with the patient and/or guardian regarding: the historical points, exam findings, and any diagnostic results supporting the discharge/admit diagnosis, lab results, radiology results, the need for outpatient follow up, to return to the emergency department if symptoms worsen or persist or if there are any questions or concerns that arise at home. 20:37 ED course: Patient's symptoms resolved with medications given in the ER. Will discharge pm1 the patient home with valium. 08/18 17:17 Order name: Basic Metabolic Panel; Complete Time: 18:30 pm1 08/18 17:17 Order name: CBC with Diff; Complete Time: 18:10 pm1 08/18 17:17 Order name: LFT's; Complete Time: 18:30 pm1 08/18 17:17 Order name: Magnesium; Complete Time: 18:30 pm1 08/18 17:17 Order name: NT PRO-BNP; Complete Time: 18:30 pm1 08/18 17:17 Order name: PT-INR; Complete Time: 19:47 pm1 08/18 16:17 Order name: CT Head Brain wo Cont; Complete Time: 17:09 sv 08/18 17:17 Order name: Troponin (emerg Dept Use Only); Complete Time: 18:30 pm1 08/18 17:17 Order name: XRAY Chest (1 view); Complete Time: 18:42 pm1 08/18 17:17 Order name: EKG; Complete Time: 17:19 pm1 08/18 17:17 Order name: Cardiac monitoring; Complete Time: 18:02 pm1 08/18 17:17 Order name: EKG - Nurse/Tech; Complete Time: 18:02 pm1 08/18 17:17 Order name: IV Saline Lock; Complete Time: 18:02 pm1 08/18 17:17 Order name: Labs collected and sent; Complete Time: 18:02 pm1 08/18 17:17 Order name: O2 Per Protocol; Complete Time: 18:02 pm1 08/18 17:17 Order name: O2 Sat Monitoring; Complete Time: 18:02 pm1 08/18 17:17 Order name: Orthostatic Blood Pressure; Complete Time: 18:02 pm1 Administered Medications: 19:13 Drug: Valium 5 mg Route: PO; rv 19:51 Follow up: Response: Marked relief of symptoms rv 19:13 Drug: NS 0.9% 1000 ml Route: IV; Rate: 1000 ml; Site: right antecubital; rv 19:51 Follow up: IV Status: Completed infusion; IV Intake: 1000ml rv 19:48 Drug: Meclizine 50 mg Route: PO; rv 22:30 Follow up: Response: Marked relief of symptoms rv Disposition: 08/18/18 20:37 Discharged to Home. Impression: Dizziness and giddiness. - Condition is Stable. - Discharge Instructions: Dizziness, Meniere Disease. - Prescriptions for Valium 5 mg Oral Tablet - take 1 tablet by ORAL route every 8 hours As needed; 20 tablet. - Medication Reconciliation Form, Thank You Letter, Antibiotic Education, Prescription Opioid Use form. - Follow up: Emergency Department; When: As needed; Reason: Worsening of condition. Follow up: Private Physician; When: 2 - 3 days; Reason: Recheck today's complaints, Continuance of care, Re-evaluation by your physician. - Problem is new. - Symptoms have improved. Addendum: 08/20/2018 06:33 Co-signature as Attending Physician, Filiberto Mendez MD I agree with the assessment and k dr plan of care. Signatures: Dispatcher [employer] EDKassidy Haley RN RN sv Rittger, Kevin, MD MD [facility] Cole Flowers, TELEHEALTH COORDINATOR TELEHEALTH COORDINATOR pm1 Davon Lopes RN RN rv Corrections: (The following items were deleted from the chart) 08/18 20:50 20:37 08/18/2018 20:37 Discharged to Home. Impression: Dizziness and giddiness. rv Condition is Stable. Forms are Medication Reconciliation Form, Thank You Letter, Antibiotic Education, Prescription Opioid Use. Follow up: Emergency Department; When: As needed; Reason: Worsening of condition. Follow up: Private Physician; When: 2 - 3 days; Reason: Recheck today's complaints, Continuance of care, Re-evaluation by your physician. Problem is new. Symptoms have improved. pm1
[2018-08-18 21:49] VITALS: BP 147/61; O2SAT 94
[2018-08-18 21:50] VITALS: TEMP 97.8
--- NOTE | 2018-08-19 09:47 | EKG ---
Test Date: 2018-08-18 Test Time: 17:45:40 Trouble Clerk: SHADT MEASUREMENT RESULTS: Intervals: Rate: 57 DC: 260 QRSD: 136 QT: 478 QTc: 465 [place]: P: 43 DC: 260 QRS: 0 T: 28 INTERPRETIVE STATEMENTS: Sinus bradycardia with 1st degree AV block Right bundle branch block Abnormal ECG Compared to ECG 09/13/2012 10:43:31 Right bundle-branch block now present Sinus rhythm no longer present Electronically Signed On 08-19-18 09:46:55 CDT by Jg Mckee
== END 2018-08-18 20:50 | disposition home or self-care (01) ==
LOC: ER 15:28
DX: R42 Dizziness and giddiness (principal); I44.2 Atrioventricular block, complete; I45.10 Unspecified right bundle-branch block
CPT/HCPCS: 93005; 85025; 80048; 36415; 83735; 85610; 80076; 84484; 83880; 70450; 71045; 96360; 99285; J7030